=== PATIENT | female | born 1970 | race Two or more races ===

== ENCOUNTER 2016-03-13 09:39 | Emergency (ER) | payer BC, OTHER ==
[2016-03-13 10:01] VITALS: BP 120/62; PULSE 18; RESP 78; TEMP 98; O2SAT 97
--- NOTE | 2016-03-13 10:58 | UCPHY ---
H & P Time Seen by Provider: 03/13/16 10:44 Patient Type: New HPI/ROS: This patient presents with a 3 day history of nasal and sinus congestion, left ear fullness and headache for the past 3 days. Initially she had some chills and a subjective fever but does not feel feverish today. She does have generalized myalgias but no cough. She does admit to having a sore throat but attributes this to a postnasal drip. REVIEW OF SYSTEMS: Constitutional: Malaise, fatigue, questionable fever Eyes: No complaints ENT: Sore throat, throbbing teeth and left ear fullness Respiratory: No cough, no shortness of breath Cardiac: No chest pain Gastrointestinal: Not addressed Genitourinary: Not addressed Musculoskeletal: Myalgias Skin: No rash Neurological: Headache Smoking Status: Never smoked Physical Exam: GENERAL: Well-appearing, well-nourished and in no acute distress. HEAD: Atraumatic, normocephalic. EYES: sclera anicteric, conjunctiva are normal. ENT: TMs normal, nares patent, oropharynx clear without exudates. Moist mucous membranes. There is minimal tenderness to percussion over the maxillary but not the frontal sinuses. There is no swelling or erythema over the maxillary sinuses NECK: Normal range of motion, supple without lymphadenopathy or JVD. LUNGS: Breath sounds clear to auscultation bilaterally and equal. No wheezes rales or rhonchi. HEART: Regular rate and rhythm EXTREMITIES: Normal range of motion, NEUROLOGICAL: Cranial nerves II through XII grossly intact. Normal speech, normal gait. PSYCH: Normal mood, normal affect. SKIN: Warm, dry, normal turgor, no visible rashes or lesions. Constitutional: Initial Vital Signs Temperature (C) 36.6 C 03/13/16 09:59 Heart Rate 18 L 03/13/16 09:59 Respiratory Rate 78 H 03/13/16 09:59 Blood Pressure 120/62 03/13/16 09:59 O2 Sat (%) 97 03/13/16 09:59 O2 Delivery Mode Room Air Allergies/Adverse Reactions: No Known Allergies Allergy (Unverified 03/13/16 09:54) Home Medications: Medication Instructions Recorded Simvastatin 03/13/16 Thyroid 03/13/16 Medical Decision Making Differential Diagnosis: I believe that this patient has a viral syndrome and that antibiotics are not indicated. I did not feel that further investigation is indicated. Departure - Departure Disposition: Home, Routine, Self-Care Clinical Impression: Upper respiratory infection Qualifiers: URI type: unspecified URI Qualifier Code: (J06.9) Acute upper respiratory infection, unspecified Condition: Good Instructions: Upper Respiratory Infection (ED) Additional Instructions: If your symptoms have not resolved in 7-10 days you should be re-evaluated. I would not be surprised if you developed a cough in 2 or 3 days. Try a nasal decongestant spray such as Afrin. It would be fine to use Mucinex as well. Cause for concern would be fever greater than 101 degrees or did generally worsening symptoms. Adult Pain & Fever Control: We recommend Acetaminophen (Tylenol) and Ibuprofen (Motrin, Advil) for pain and fever control. When fever is high or pain severe, both drugs can be used at the same time, but at different intervals. Please note the time differences. Your dose is: Acetaminophen [650]mg every 4 to 6 hours ibuprofen [600]mg every [6] hours with food OR naproxen Sodium (Aleve) [440]mg every 12 hours. Note: do not take Acetaminophen with Hydrocodone (Vicodin, Lortab) or Oxycodone (Percocet). These medications also contain Acetaminophen. No more than 3000 mg of Acetaminophen should be taken in 24 hours (for an adult) . The maximal dose of ibuprofen that it is safe in a 24-hour period is 2400 mg. You may take 400 mg every 4 hours, 600 mg every 6 hours or 800 mg every 8 hours safely. Referrals: Erica Meraz MD [Primary Care Provider] - As per Instructions - PQRS PQRS Measurement: Not applicable
== END 2016-03-13 11:02 | disposition home or self-care (01) ==
LOC: CED 09:39
DX: J06.9 Acute upper respiratory infection, unspecified (principal)
CPT/HCPCS: 99203-PO; G0463-PO

== ENCOUNTER 2016-04-29 08:53 | Emergency (ER) | payer BC, OTHER ==
[2016-04-29 09:08] VITALS: BP 141/93; PULSE 88; RESP 14; TEMP 98.4; O2SAT 97
--- NOTE | 2016-04-29 09:40 | UCPHY ---
H & P Time Seen by Provider: 04/29/16 09:39 Patient Type: Established HPI/ROS: Chief complaint. Eye irritation HPI. Left eye redness and irritation for 2 days. Yellow drainage from the eye. No trauma. She was at a dog park several days ago when it was windy and thinks she got dust in her eye. However no foreign body sensation now. Right eye is normal. Some fullness to the left ear. She also thinks that maybe she has been wheezing especially with exertion recently. ROS Constitutional. no fever/chills, no weakness Eyes. Left eye redness with drainage ENT. no sore throat, no nasal drainage Cardiovascular. no chest pain Respiratory. no shortness of breath, no cough Abdominal. no abdominal pain, no nausea/vomiting, no diarrhea . no problems urinating MS. no calf pain/swelling, no neck/back pain, no joint pain Skin. no rash Lymph. no swollen glands Neuro. no headache, no dizziness, no difficulty walking or with speech Past Medical/Surgical History: Hypothyroid, allergies Social History: , nonsmoker, no alcohol Smoking Status: Never smoked Physical Exam: General Appearance: Alert pleasant well-developed female mild distress vital signs are stable Eyes: Pupils are equal round reactive. Left eye has injected conjunctiva and yellowish drainage.. ENT, left tympanic membrane is slightly erythematous. Right tympanic membranes normal. Pharynx is normal Respiratory: There are no retractions, lungs are clear to auscultation. Cardiovascular: Regular rate and rhythm. Gastrointestinal: Abdomen is soft and nontender, no masses, bowel sounds normal. Neurological: Awake and alert, sensory and motor exams grossly normal. Skin: Warm and dry, no rashes. Musculoskeletal: Neck is supple nontender. Extremities symmetrical, full range of motion. Psychiatric: Patient is oriented X 3, there is no agitation. Constitutional: Initial Vital Signs Temperature (C) 36.9 C 04/29/16 09:02 Heart Rate 88 04/29/16 09:02 Respiratory Rate 14 04/29/16 09:02 Blood Pressure 141/93 H 04/29/16 09:02 O2 Sat (%) 97 04/29/16 09:02 O2 Delivery Mode Room Air Allergies/Adverse Reactions: No Known Allergies Allergy (Unverified 04/29/16 09:10) Home Medications: Medication Instructions Recorded Simvastatin 03/13/16 Albuterol Hfa Anes Only [Proair 2 puffs IH QID #1 mdi 04/29/16 Hfa Icu (*)] Flonase Allergy Relief 04/29/16 Gentamicin 0.3% [Gentak 0.3% Opht 2 drops OP QID #1 opht.btl 04/29/16 Drops] Omeprazole 04/29/16 Synthroid 100 mcg (*) 04/29/16 Zyrtec 04/29/16 Medical Decision Making ED Course/Re-evaluation: Patient remained stable Patient and I discussed treatment plan including criteria for return importance of follow-up further evaluation. She expresses understanding and agreement Differential Diagnosis: Conjunctivitis. This is bacterial versus viral. She also notes wheezing with exertion and while she does not have any wheezing now she will be given a prescription for albuterol inhaler to try before exercise Departure - Departure Disposition: Home, Routine, Self-Care Clinical Impression: Conjunctivitis Qualifiers: Conjunctivitis type: acute Acute conjunctivitis type: unspecified Laterality: left Qualified Code(s): H10.32 - Unspecified acute conjunctivitis, left eye Condition: Good Instructions: Conjunctivitis (ED) Additional Instructions: Antibiotic eyedrops using 2 drops 4 times daily for the next 3 days. Return for worsening symptoms. Albuterol inhaler using 2 puffs before exercise to help with chest tightness and wheezing. Recheck in 2-3 days if not improving Referrals: Erica Meraz MD [Primary Care Provider] - 2-3 days, if not improved Prescriptions: Albuterol Hfa Anes Only [Proair Hfa Icu (*)] 2 puffs IH QID #1 mdi Gentamicin 0.3% [Gentak 0.3% Opht Drops] 2 drops OP QID #1 opht.btl - PQRS PQRS Measurement: 134: Depression screening and followup, PRIME MD-PHQ2 (12 years and older) Over the last 2 weeks, how often have you been bothered by any of the following problems? 1. Feeling down, depressed, or hopeless? 2. Little interest or pleasure in doing things? Patient answered no to both 1 and 2 130: Documentation of medications. Reviewed all patient medications, doses, route and frequency. 226: Do you smoke? No.
== END 2016-04-29 10:07 | disposition home or self-care (01) ==
LOC: CED 08:53
DX: H10.32 Unspecified acute conjunctivitis, left eye (principal)
CPT/HCPCS: 99214-PO; G0463-PO

== ENCOUNTER 2016-06-18 09:32 | Emergency (ER) | payer BC ==
[2016-06-18 09:42] VITALS: RESP 16
--- NOTE | 2016-06-18 09:44 | EDPHY ---
H & P Stated Complaint: R low back pain, nausea, discomfort with urination x 1 day. HPI/ROS: CHIEF COMPLAINT: Back pain HISTORY OF PRESENT ILLNESS: The patient is a 45-year-old female presenting with right lower back pain that started yesterday. Her pain began as a dull ache. She sat in the hot tub for some time and tried IcyHot but found no relief. She took 800mg Ibuprofen before bed last night. This morning when she woke up the pain was worse. Her pain is localized to the right lower back. It does not radiate into her right lower leg. No leg weakness. She denies bowel or bladder incontinence. She was doing some heavy lifting two days ago. REVIEW OF SYSTEMS: A ten point review of systems was performed and is negative with the exception of the items mentioned in the HPI and below. Abdominal: Brief episode of nausea yesterday, now resolved. Genitourinary: Pain with intercourse once last week. 1 episode of dysuria sometime last week. Source: Patient Exam Limitations: No limitations - Personal History LMP (Females 10-55): Post Menopausal Current Tetanus/Diphtheria Vaccine: Unsure Current Tetanus Diphtheria and Acellular Pertussis (TDAP): Unsure - Medical/Surgical History Hx Asthma: No Hx Chronic Respiratory Disease: No Hx Diabetes: No Hx Cardiac Disease: No Hx Renal Disease: No Hx Cirrhosis: No Hx Alcoholism: No Hx HIV/AIDS: No Hx Splenectomy or Spleen Trauma: No Other PMH: Hyperlipidemia, hypothyroidism, L4-5 microdiskectomy - Social History Smoking Status: Never smoked Additional Social History: Moved here in September. with kids. Works with dementia patients. Nonsmoker. Occasional alcohol. - Physical Exam Exam: General Appearance: Alert. Vital signs reviewed. BP 140/84. Neck: Nontender over cervical spine in midline. Respiratory: Lungs are clear to auscultation; no wheezes, rales, or rhonchi. Cardiovascular: Regular rate and rhythm; no murmur, rub, or gallop. Gastrointestinal: Abdomen is soft and nontender, no masses or organomegaly, bowel sounds normal. Skin: Warm and dry, no rashes on exposed skin, normal color. Back: Nontender to palpation over the thoracolumbar spine. No CVAT. 25 degrees of flexion and extension at the waist. Extremities: No lower extremity edema, no calf tenderness or swelling. Neurological: Alert and oriented. Moving all four extremities easily and equally. Strength is 5 over 5 bilaterally with testing of all major motor groups. Sensation is intact to light touch over all 4 extremities. Deep tendon reflexes are 2+ in the knees bilaterally, 1+ ankle jerks bilaterally. Gait is normal. Psychiatric: Normal affect. Constitutional: Initial Vital Signs Temperature (C) 36.4 C 06/18/16 09:40 Heart Rate 67 06/18/16 09:40 Respiratory Rate 16 06/18/16 09:40 Blood Pressure 140/84 H 06/18/16 09:40 O2 Sat (%) 97 06/18/16 09:40 O2 Delivery Mode Room Air Allergies/Adverse Reactions: No Known Allergies Allergy (Verified 06/18/16 09:42) Home Medications: Medication Instructions Recorded Simvastatin 03/13/16 Flonase Allergy Relief 04/29/16 Synthroid 100 mcg (*) 04/29/16 Zyrtec 04/29/16 Metaxalone [Skelaxin 800 mg (*)] 800 mg PO TID PRN #5 tab 06/18/16 Serovital 06/18/16 Medical Decision Making ED Course/Re-evaluation: Urinalysis is positive for 2+ epithelial cells, 1+ bacteria, and some white blood cells. I am regarding this as a "dirty urine" because of the epithelial cells. I do not think that this represents a urinary tract infection. If she has evolution of urinary signs/symptoms I am recommending a repeat urinalysis. She does not have flank pain. Her pain is at the level of her waist. I think that her pain is musculoskeletal. She does not have radicular signs. Nothing to suggest central cord syndrome. I am recommending symptomatic treatment with ibuprofen and Tylenol. She is given a prescription for small quantity of Skelaxin to use if needed. She will try lidocaine patch. If her pain continues she will follow up with her primary care physician. Danger signs were reviewed with her. Differential Diagnosis: Back pain including but not limited to muscular pain, herniated disc, spine fracture, intra-abdominal causes and urinary tract infection. - Data Points Laboratory Results: 06/18/16 09:39 Urine Color YELLOW Urine Appearance CLEAR Urine pH 6.5 (5.0-7.5) Ur Specific [place] 1.020 (1.002-1.030) Urine Protein NEGATIVE (NEGATIVE) Urine Ketones NEGATIVE (NEGATIVE) Urine Blood NEGATIVE (NEGATIVE) Urine Nitrate NEGATIVE (NEGATIVE) Urine Bilirubin NEGATIVE (NEGATIVE) Urine Urobilinogen 0.2 EU EU (0.2-1.0) Ur Leukocyte Esterase NEGATIVE (NEGATIVE) Urine RBC NONE SEEN /hpf /hpf (0-3) Urine WBC 3-5 /hpf H /hpf (0-3) Ur Epithelial Cells 2+ /lpf H /lpf (NONE-1+) Urine Bacteria 1+ /hpf H /hpf (NONE SEEN) Urine Mucus 1+ /lpf /lpf (NONE-1+) Urine Glucose NEGATIVE (NEGATIVE) Medications Given: Discontinued Medications Ibuprofen (Motrin) 600 mg PO EDNOW ONE Stop: 06/18/16 10:07 Last Admin: 06/18/16 10:14 Dose: 600 mg Departure - Departure Disposition: Home, Routine, Self-Care Clinical Impression: Musculoskeletal back pain Low back pain Qualifiers: Chronicity: acute Back pain laterality: right Sciatica presence: without sciatica Qualified Code(s): M54.5 - Low back pain Condition: Good Instructions: Acute Low Back Pain (ED) Additional Instructions: Adult Pain Control: We recommend Acetaminophen (Tylenol) and Ibuprofen (Motrin,Advil) for pain and fever control. When pain is severe, both drugs can be used at the same time, but at different intervals. Please note the time differences. Your dose is: Acetaminophen 650mg every 4 to 6 hours Ibuprofen 600mg-800mg every 6-8 hours with food. I recommend purchasing Lidocaine patches at the drug store to help with the pain. Avoid heavy lifting while you continue to have pain. See your primary care physician if you develop painful urination, fever, or if pain moves toward the kidneys. Return to the emergency department if you lose control of your bowels or bladder , develop right leg weakness, or pain becomes severe. You have been prescribed a muscle relaxer, Skelaxin. Take this medication as prescribed to help with pain. Referrals: Erica Meraz MD [Primary Care Provider] - As per Instructions Prescriptions: Metaxalone [Skelaxin 800 mg (*)] 800 mg PO TID PRN #5 tab PRN Reason: Spasms Report Scribed for: Janelle Smiley Report Scribed by: Karli Mobley Date of Report: 06/18/16 Time of Report: 10:11 Physician Review and Approval Statement: 06/18/16 09:44 Portions of this note were transcribed by the medical record coder. I, Dr. Janelle Smiley, personally performed the history, physical exam, and medical decision- making; and confirmed the accuracy of the information in the transcribed note.
[2016-06-18 09:52] LABS: COLOR YELLOW; LEUKOCYTE ESTERASE,URINE NEGATIVE (NEGATIVE); NITRITE,URINE NEGATIVE (NEGATIVE); PH,URINE 6.5 (5.0-7.5)
[2016-06-18 10:06] LABS: BACTERIA 1+ /hpf (NONE SEEN); MUCUS 1+ /lpf (NONE-1+); RBC,URINE NONE SEEN /hpf (0-3)
[2016-06-18] MEDS ORDERED: IBUPROFEN 600 MG TAB PO ONE (10:06)
[2016-06-18 10:26] VITALS: BP 138/82; PULSE 65; TEMP 97.7; O2SAT 96
== END 2016-06-18 10:25 | disposition home or self-care (01) ==
LOC: CED 09:32
DX: M54.5 Low back pain (principal)
CPT/HCPCS: 81003-PO; 81015-PO

== ENCOUNTER → 2017-04-16 | Outpatient (CLI) | payer BC | LOC: FIMAGING 15:20 | PROVIDERS: ATTEND Obstetrics & Gynecology Gynecology | DX: Z12.31 Encounter for screening mammogram for malignant neoplasm of breast (principal) ==

== ENCOUNTER → 2018-05-21 | Outpatient (CLI) | payer OTHER | LOC: FIMAGING 09:16 | PROVIDERS: ATTEND Obstetrics & Gynecology Gynecology | DX: Z12.31 Encounter for screening mammogram for malignant neoplasm of breast (principal); R92.0 Mammographic microcalcification found on diagnostic imaging of breast ==

== ENCOUNTER → 2018-05-28 | Outpatient (CLI) | payer OTHER | LOC: FIMAGING 09:32 | PROVIDERS: ATTEND Obstetrics & Gynecology Gynecology | DX: R92.0 Mammographic microcalcification found on diagnostic imaging of breast (principal) ==

== ENCOUNTER → 2018-06-17 | Day surgery (SDC) | payer OTHER ==
[~2018-06-17] MED LIST: BUPIVACAINE 0.5% 30 ML SDV ONE; LIDOCAINE 1% 300 MG/30 ML SDV ONE
== END ==
DX: N60.91 Unspecified benign mammary dysplasia of right breast (principal)

== ENCOUNTER 2018-07-16 08:08 | Day surgery (SDC) | payer OTHER ==
[2018-07-16] MEDS ORDERED: LIDOCAINE 1% 5 ML SDV ONE ×3 (08:47→11:24)
[2018-07-16] MEDS ORDERED: LIDOCAINE 1% 2 ML INJ ID PRN (08:58)
[2018-07-16] MEDS ORDERED: ceFAZolin 2 GM/DEXTROSE 100 ML IV ONE (08:58)
[2018-07-16] MEDS ORDERED: LR 1,000 ML IV ONE (08:58)
[2018-07-16] MEDS ORDERED: LIDOCAINE 1% 2 ML INJ ONE (09:00)
[2018-07-16] MEDS ORDERED: BUPIVACAINE 0.25% 30 ML SDV ONE (11:25)
--- NOTE | 2018-07-16 12:08 | PDANEPAE ---
ANE History of Present Illness ductal hyperplasia s/f R needle loc biopsy ANE Past Medical History - Cardiovascular History Hx Hypertension: No Hx Arrhythmias: No Hx Chest Pain: No Hx Coronary Artery / Peripheral Vascular Disease: No Hx CHF / Valvular Disease: No Hx Palpitations: No - Pulmonary History Hx COPD: No Hx Asthma/Reactive Airway Disease: Yes Hx Recent Upper Respiratory Infection: No Hx Oxygen in Use at Home: No Hx Sleep Apnea: No Sleep Apnea Screening Result - Last Documented: Negative Pulmonary History Comment: exercise induced asthma - Neurologic History Hx Cerebrovascular Accident: No Hx Seizures: No Hx Dementia: No - Endocrine History Hx Diabetes: No - Renal History Hx Renal Disorders: No - Liver History Hx Hepatic Disorders: No - Neurological & Psychiatric Hx Hx Neurological and Psychiatric Disorders: No Neurological / Psychiatric History Comment: celexa for menapausal symptoms - Cancer History Hx Cancer: No - Congenital Disorder History Hx Congenital Disorders: Yes Congenital History Comment: esophageal cancer - GI History Hx Gastrointestinal Disorders: Yes Gastrointestinal History Comment: acid reflux - Other Health History Other Health History: none - Chronic Pain History Chronic Pain: No - Surgical History Prior Surgeries: back surgery 9 yrs ago ANE Review of Systems Review of Systems: - Exercise capacity METS (RN): 5 METS ANE Patient History - Allergies Allergies/Adverse Reactions: No Known Allergies Allergy (Verified 07/16/18 09:22) - Home Medications Home medications: home medication list seen and reviewed Home Medications: Simvastatin 03/13/16 [Last Taken 07/15/18 23:00] Synthroid 100 mcg (*) 04/29/16 [Last Taken 07/16/18 07:30] Zyrtec 04/29/16 [Last Taken 07/16/18 07:30] Celexa 07/10/18 [Last Taken 07/15/18 23:00] - NPO status NPO Status: no food or drink >8 hours NPO Since - Liquids (Date): 07/16/18 NPO Since - Liquids (Time): 08:50 NPO Since - Solids (Date): 07/15/18 NPO Since - Solids (Time): 23:00 - Smoking Hx Smoking Status: Never smoked - Alcohol Use Alcohol Use: Occasionally - Family Anes Hx Family Anes Hx: none Family Hx Anesthesia Complications: none ANE Labs/Vital Signs - Vital Signs Blood Pressure: 131/77 Heart Rate: 53 Respiratory Rate: 16 O2 Sat (%): 95 Height: 166.37 cm Weight: 81.647 kg ANE Physical Exam - Airway Neck exam: FROM Mallampati Score: Class 2 Mouth exam: normal dental/mouth exam - Pulmonary Pulmonary: no respiratory distress - Cardiovascular Cardiovascular: regular rate and rhythym - ASA Status ASA Status: II ANE Anesthesia Plan Anesthesia Plan: GA w LMA
[2018-07-16] MEDS ORDERED: AVITENE POWDER 1 GM JAR TP ONE (12:12)
[2018-07-16] MEDS ORDERED: LIDOCAINE 2% 100 MG/5 ML SYR ONE (12:48)
[2018-07-16] MEDS ORDERED: LIDOCAINE 2% JELLY 6 ML TOPICAL SYR ONE (12:48)
[2018-07-16] MEDS ORDERED: fentaNYL 100 MCG/2 ML INJ ONE ×2 (12:48→14:58)
[2018-07-16] MEDS ORDERED: PROPOFOL/EMULSION 500 MG/50 ML BOTTLE IV ONE (12:48)
[2018-07-16] MEDS ORDERED: DEXAMETHASONE 4 MG/ML VIAL ONE (12:48)
[2018-07-16] MEDS ORDERED: ONDANSETRON 4 MG/2 ML VIAL ONE (12:49)
--- NOTE | 2018-07-16 12:54 | PDHPUP ---
History & Physical Update H&P update statement: This history and physical update is based on an assessment of the patient which was completed after admission or registration (within 24 hours), but prior to the surgery/procedure. H&P update: H&P reviewed & patient examined, no change in patient's condition since H&P completed
[2018-07-16] MEDS ORDERED: fentaNYL 100 MCG/2 ML INJ IVP PRN (13:48)
[2018-07-16] MEDS ORDERED: LABETALOL HCL 5 MG/ML 20 ML MDV IVP PRN (13:48)
[2018-07-16] MEDS ORDERED: MEPERIDINE 25 MG/0.5 ML AMP IVP PRN (13:48)
[2018-07-16] MEDS ORDERED: HYDROCODONE/APAP 5/325 TAB PO PRN ×2 (13:48→14:26)
[2018-07-16] MEDS ORDERED: DEXAMETHASONE 4 MG/ML VIAL IVP PRN (13:48)
[2018-07-16] MEDS ORDERED: LR 500 ML IV PRN (13:48)
[2018-07-16] MEDS ORDERED: ALBUTEROL 3 ML DEYVIAL IH PRN (13:48)
[2018-07-16] MEDS ORDERED: PHENYLEPHRINE HCL 100 MCG/ML SYR IVP PRN (13:48)
[2018-07-16] MEDS ORDERED: NALOXONE HCL 0.4 MG/ML INJ IVP PRN (13:48)
[2018-07-16] MEDS ORDERED: METOCLOPRAMIDE 10 MG/2 ML VIAL IVP PRN (13:48)
[2018-07-16] MEDS ORDERED: ONDANSETRON 4 MG/2 ML VIAL IVP PRN (13:48)
[2018-07-16] MEDS ORDERED: PROMETHAZINE HCL 25 MG/ML INJ IVP PRN (13:48)
[2018-07-16] MEDS ORDERED: oxyCODONE IR 5 MG TAB PO PRN (13:48)
--- NOTE | 2018-07-16 14:25 | POSTOPPROG ---
Post Op Note Date of Operation: 07/16/18 Surgeon: Tristen Luther (, FACS) Anesthesiologist: Sherif Alvarenga MD Anesthesia: LMA Pre-op Diagnosis: ADH right breast Post-op Diagnosis: same Procedure: right breast excisional biopsy with mammo guided needle loc Findings: Ca++/clip confirmed by specimen mammogram Inf/Abcess present in the surg proc area at time of surgery?: No EBL: Minimal (25ml) Bowel Protocol: N/A Clean Closure Performed: N/A Specimen(s): right breast excisional biopsy oriented with Margin Marker/specimen mammo confirms target
[2018-07-16] MEDS ORDERED: LABETALOL HCL 5 MG/ML 20 ML MDV ONE (14:35)
[2018-07-16] MEDS ORDERED: ALBUTEROL 3 ML DEYVIAL ONE (15:31)
--- NOTE | 2018-07-16 17:15 | POSTANESTH ---
Post Anesthetic Evaluation Cardiovascular Status: Normal, Stable, Similar to Pre-Op Cond Respiratory Status: Normal, Stable, Tx Decrease in SpO2 (likely atelectasis by CXR imporved with IS) Level of Consciousness/Mental Status: Can Participate in Eval, Alert and Oriented Pain Control: Adequate, Prn Tx Ordered Nausea/Vomiting Control: Adequate, Prn Tx Ordered Complications Possibly Related to Anesthesia: None Noted
--- NOTE | 2018-07-16 17:24 | SOAPPROG ---
SOAP Progress Note Assessment/Plan: Assessment: post op hypoxemia following uncomplicated breast biopsy/GA via LMA likely due to atelectasis Plan: IS/increase activity may need overnight stay if not improved 07/16/18 17:23 Subjective: reporting chest tightness after awakening O2 sats low post op Objective: Vital Signs Temp Pulse Resp BP Pulse Ox 36.5 C 66 15 109/83 H 96 07/16/18 14:47 07/16/18 14:37 07/16/18 15:46 07/16/18 17:02 07/16/18 17:02 07/15/18 07/16/18 07/17/18 05:59 05:59 05:59 Intake Total 850 Output Total 25 Balance 825 CXR shows low lung volumes/atelectasis (cardiolmegaly likely wnl given AP format of CXR) Physical Exam - Physical Exam General Appearance: no apparent distress Respiratory: lungs clear, decreased breath sounds, other (able to pull <1000ml on IS) Cardiac/Chest: regular rate, rhythm ICD10 Worksheet Patient Problems: Problems Problem Status Onset Atypical ductal hyperplasia of right breast Acute Postoperative hypoxemia Acute - ICD10 Problem Qualifiers (1) Atypical ductal hyperplasia of right breast (2) Postoperative hypoxemia
--- NOTE | 2018-07-16 17:28 | GOP ---
[f rep st] OPERATIVE REPORT DATE OF OPERATION: 07/16/2018 SURGEON: Tristen Luther MD, FACS ANESTHESIA: General by laryngeal mask. ANESTHESIOLOGIST: Sherif Alvarenga MD. PREOPERATIVE DIAGNOSIS: Right breast atypical ductal hyperplasia, status post core needle biopsy. POSTOPERATIVE DIAGNOSIS: Right breast atypical ductal hyperplasia, status post core needle biopsy. PROCEDURE PERFORMED: Right breast excisional biopsy with preoperative mammogram -guided needle localization. FINDINGS: Microcalcifications and previously deployed clip confirmed within the specimen by specimen mammogram. Fibrofatty breast tissue without particular concerning features, tagged for orientation with a margin-marker kit , and submitted for permanent section. ESTIMATED BLOOD LOSS: 25 mL. DESCRIPTION OF PROCEDURE: Procedure after informed consent was obtained, the patient was brought to the operating room and placed under general anesthesia. The right breast was prepped and draped in the usual fashion. Before proceeding , a time-out and identification of the patient was performed. The patient had a Kopan's wire exiting the breast at the approximately 12:30 position, 2 cm from the areolar border and directed medially and posteriorly. The skin at the areolar border was marked for a planned incision site. The planned incision site was infiltrated with 0.25% Marcaine incised in a curvilinear fashion between approximately the 1 o'clock and the 11 o'clock positions. Dissection was carried out in a subcutaneous plane to the wire entry site. The wire was mobilized into the incision and used to guide dissection into the deeper breast tissues, which were also infiltrated with 0.25 % Marcaine. As the deep breast tissues were mobilized circumferential to the shaft and tip of the wire, the tissue was noted to be fibrofatty in nature. The posterior tissue was somewhat more glandular and this was dissected sharply and the entire specimen was removed. In the course of removing the specimen, the wire was dislodged and was left out of the specimen. The specimen was marked with a margin-marker kit, separately designating the superior, inferior, medial, lateral, anterior, and posterior margins. This was submitted for specimen mammogram, which confirmed the previously deployed clip and residual microcalcifications to be within the specimen. The specimen was then submitted to pathology. Hemostasis was secured within the cavity using cautery. Subcutaneous tissues were approximated with 3-0 Monocryl suture. Skin was closed with 4-0 Monocryl suture in a subcuticular fashion. Topical Dermabond was applied. The patient was returned, extubated, to the recovery room in satisfactory condition. Needle, sponge, and instrument count correct. COMPLICATIONS: None. /[id number]/MODL MTDD
[2018-07-16 19:06] VITALS: BP 120/60
== END 2018-07-16 18:15 | disposition home or self-care (01) ==
LOC: FIMAGING 08:08
PROVIDERS: ATTEND Surgery
PROC: BH00ZZZ Plain Radiography of Right Breast (ICD-10-PCS; principal; 2018-07-16 12:30)
PROC: 0HBT0ZZ Excision of Right Breast, Open Approach (ICD-10-PCS; principal; 2018-07-16 12:30)
DX: N60.91 Unspecified benign mammary dysplasia of right breast (principal); R09.02 Hypoxemia; E03.8 Other specified hypothyroidism; Z80.0 Family history of malignant neoplasm of digestive organs
CPT/HCPCS: J0690; J1100; J2001; J2405; J2704; J3010; J7613